=== PATIENT | female | born 1990 | race Caucasian/White ===

== ENCOUNTER 2017-10-10 11:02 | Emergency (ER) | payer OTHER ==
[2017-10-10 11:08] VITALS: BMI 21.7
--- NOTE | 2017-10-10 11:44 | PDOC ---
History of Present Illness - General History Source: Patient Exam Limitations: No Limitations - History of Present Illness Initial Comments: 10/10/17 12:15 The patient is a 27-year-old female with no significant past medical history, and presents to the emergency department with abdominal pain, sore throat, and cough for 4 days. She reports she developed a scratchy throat 4 days ago, and developed associated weakness, chest congestion, and body aches the next day. She also reports of a productive cough with dark green mucus. She complains of constant diffuse abdominal pain, accompanied by nausea and non-bloody diarrhea. She states she took Theraflu with no significant relief. The patient denies chest pain, shortness of breath, headache and dizziness. The patient denies fever, chills, vomit, and constipation. The patient denies dysuria, frequency, urgency and hematuria. LMP: 10/01/17 Allergies: NKDA Past Surgical History: None reported Social History: No toxic habits reported <Colette Pickering - Last Filed: 10/10/17 12:15> <Bud Calix - Last Filed: 10/10/17 19:15> - General Chief Complaint: Pain, Acute Stated Complaint: ABD PAIN, SOB Time Seen by Provider: 10/10/17 11:41 Past History <Colette Pickering - Last Filed: 10/10/17 12:15> - Past Medical History Asthma: Yes COPD: No - Suicide/Smoking/Psychosocial Hx Smoking History: Never smoked Hx Alcohol Use: No Drug/Substance Use Hx: No Substance Use Type: None <Bud Calix - Last Filed: 10/10/17 19:15> - Past Medical History Allergies/Adverse Reactions: Allergies Allergy/AdvReac Type Severity Reaction Status Date / Time No Known Allergies Allergy Verified 10/10/17 11:08 Home Medications: Ambulatory Orders Albuterol Sulfate Inhaler - [Ventolin HFA Inhaler -] 2 inh PO Q6H PRN #1 inh 05/01 Dicyclomine HCl [Bentyl -] 10 mg PO Q6H #28 capsule 10/10/17 Ibuprofen [Motrin -] 600 mg PO TID #90 tablet 10/10/17 Ondansetron [Zofran Odt -] 4 mg SL TID #21 od.tablet 10/10/17 Review of Systems - Review of Systems Able to Perform ROS?: Yes Comments:: 10/10/17 12:15 GENERAL/CONSTITUTIONAL: No fever or chills. No weakness. HEAD, EYES, EARS, NOSE AND THROAT: No change in vision. No ear pain or discharge. (+) sore throat. CARDIOVASCULAR: No chest pain or shortness of breath. RESPIRATORY: (+) Cough. No wheezing, or hemoptysis. GASTROINTESTINAL: (+) Abdominal pain. (+) Nausea. (+) Diarrhea. No vomiting or constipation. GENITOURINARY: No dysuria, frequency, or change in urination. MUSCULOSKELETAL: No joint or muscle swelling or pain. No neck or back pain. SKIN: No rash NEUROLOGIC: No headache, vertigo, loss of consciousness, or change in strength/ sensation. ENDOCRINE: No increased thirst. No abnormal weight change. HEMATOLOGIC/LYMPHATIC: No anemia, easy bleeding, or history of blood clots. ALLERGIC/IMMUNOLOGIC: No hives or skin allergy. <Pickering,Colette - Last Filed: 10/10/17 12:15> *Physical Exam - Vital Signs Last Vital Signs Temp Pulse Resp BP Pulse Ox 97.9 F 61 20 130/51 100 10/10/17 11:03 10/10/17 11:03 10/10/17 11:03 10/10/17 11:03 10/10/17 11:03 - Physical Exam Comments: 10/10/17 12:15 GENERAL: Awake, alert, and fully oriented, in no acute distress HEAD: No signs of trauma EYES: PERRLA, EOMI, sclera anicteric, conjunctiva clear ENT: Auricles normal inspection, hearing grossly normal, nares patent, oropharynx clear without exudates. Moist mucosa NECK: Normal ROM, supple, no lymphadenopathy, JVD, or masses LUNGS: Breath sounds equal, clear to auscultation bilaterally. No wheezes, and no crackles HEART: Regular rate and rhythm, normal S1 and S2, no murmurs, rubs or gallops ABDOMEN: Soft, nontender, normoactive bowel sounds. No guarding, no rebound. No masses EXTREMITIES: Normal range of motion, no edema. No clubbing or cyanosis. No cords, erythema, or tenderness NEUROLOGICAL: Cranial nerves II through XII grossly intact. Normal speech, normal gait SKIN: Warm, Dry, normal turgor, no rashes or lesions noted. <Colette Pickering - Last Filed: 10/10/17 12:15> - Vital Signs Last Vital Signs Temp Pulse Resp BP Pulse Ox 97.9 F 61 20 130/51 100 10/10/17 11:03 10/10/17 11:03 10/10/17 11:03 10/10/17 11:03 10/10/17 11:03 <Bud Calix - Last Filed: 10/10/17 19:15> ED Treatment Course - LABORATORY CBC & Chemistry Diagram: 10/10/17 12:40 10/10/17 12:40 <Bud Calix - Last Filed: 10/10/17 19:15> *DC/Admit/Observation/Transfer - Attestations Scribe Attestion: 10/10/17 12:16 Documentation prepared by Colette Pickering, acting as medical equipment repairer for Bud Calix MD/DO. <Colette Pickering - Last Filed: 10/10/17 12:15> - Discharge Dispostion Admit: No - Attestations Physician Attestion: 10/10/17 11:44 I, Dr. Bud Calix, attest that this document has been prepared under my direction and personally reviewed by me in its entirety. I further attest, that it accurately reflects all work, treatment, procedures and medical decision -making performed by me. <Bud Calix - Last Filed: 10/10/17 19:15> Diagnosis at time of Disposition: Viral syndrome Abdominal pain Qualifiers: Abdominal location: generalized Qualified Code(s): R10.84 - Generalized abdominal pain Diarrhea Qualifiers: Diarrhea type: unspecified type Qualified Code(s): R19.7 - Diarrhea, unspecified - Discharge Dispostion Disposition: HOME Condition at time of disposition: Improved - Prescriptions Prescriptions: Dicyclomine HCl [Bentyl -] 10 mg PO Q6H #28 capsule Ibuprofen [Motrin -] 600 mg PO TID #90 tablet Ondansetron [Zofran Odt -] 4 mg SL TID #21 od.tablet - Patient Instructions Printed Discharge Instructions: DI for Viral Syndrome, DI for Viral Gastroenteritis -- Adult Additional Instructions: Elissa- Sorry this is happening to you. Your ultrasound is fine. THis is just a virus and you should be better in two or three days. Return to us if worse or any problems. Follow up with your doctor. Back to work on the . Best- Dr. Bud Calix Rx for pain, nausea and cramping (Elizabeth, Susan and Domitila) went directly to your pharmacy. Make certain you get enough fluids. - Post Discharge Activity Forms/Work/School Notes: Back to Work
[2017-10-10] MEDS ORDERED: ACETAMINOPHEN 1000 MG/100 ML VIAL (NON FORMULARY) IVPB ONE (11:51)
[2017-10-10] MEDS ORDERED: SODIUM CHLORIDE 0.9% 1000 ML INFUS.BAG IV ONE (11:51)
[2017-10-10] MEDS ORDERED: ONDANSETRON 4 MG/2 ML VIAL IVPUSH ONE (11:51)
[2017-10-10] MEDS ORDERED: KETOROLAC TROMETHAMINE 30 MG/1 ML VIAL IM ONE (11:51)
[2017-10-10] MEDS ORDERED: ACETAMINOPHEN INJECTION 100 ML IVPB ONE (12:31)
[2017-10-10] MEDS ORDERED: ONDANSETRON 4 MG/2 ML VIAL ONE ×2 (12:31→17:14)
[2017-10-10] MEDS ORDERED: KETOROLAC TROMETHAMINE 30 MG/1 ML VIAL ONE (12:31)
[2017-10-10 12:55] LABS: BASO % 0.2 % (0-2.0); EOS # 0.1 # (0-4.5); EOS % 1.2 % (0-4.5); LYMPH # 0.8 (8-40); MCH 30.1 pg (25.7-33.7); MCHC 32.4 g/dl (32.0-36.0); MEAN CELL VOLUME 92.7 fl (80-96); MEAN PLT VOLUME 8.9 fl (7.5-11.1); MONO # 0.7 # (3.8-10.2); NEUT # 10.9 # (42.8-82.8); PLATELET COUNT 231 K/MM3 (134-434); RDW 13.7 % (11.6-15.6); WHITE BLOOD COUNT 12.5 K/mm3 (4.0-10.0)
[2017-10-10 12:57] LABS: URINE APPEARANCE CLEAR; URINE BILIRUBIN NEGATIVE (NEGATIVE); URINE BLOOD NEGATIVE (NEGATIVE); URINE COLOR YELLOW; URINE GLUCOSE (UA) NEGATIVE (NEGATIVE); URINE KETONE NEGATIVE (NEGATIVE); URINE LEUK ESTERASE NEGATIVE (NEGATIVE); URINE NITRITE NEGATIVE (NEGATIVE); URINE PROTEIN NEGATIVE (NEGATIVE); URINE UROBILINOGEN NEGATIVE mg/dL (0.2-1.0)
[2017-10-10 13:08] LABS: INR 1.14 (0.82-1.09); PROTHROMBIN TIME (PATIENT) 12.9 SEC (9.98-11.88)
[2017-10-10 13:13] LABS: ALK PHOS 93 U/L (45-117); ANION GAP 6 (8-16); BILIRUBIN,TOTAL 0.3 mg/dL (0.2-1.0); CALCIUM 8.8 mg/dL (8.5-10.1); CO2 27 mmol/L (21-32); CREATININE 0.8 mg/dL (0.55-1.02); GLUCOSE,RANDOM 93 mg/dL (74-106); SGOT/AST 11 U/L (15-37); SGPT/ALT 17 U/L (12-78); TOT PROT 7.4 g/dl (6.4-8.2)
[2017-10-10] MEDS ORDERED: KETOROLAC TROMETHAMINE 30 MG/1 ML VIAL IVPUSH ONE (13:43)
[2017-10-10] MEDS ORDERED: ONDANSETRON 4 MG/2 ML VIAL IVPB ONE (17:13)
[2017-10-10 18:12] VITALS: BP 106/61; PULSE 62; TEMP 97.8
[2017-10-10 18:52] LABS: URINE LEUK ESTERASE Negative (NEGATIVE)
== END 2017-10-10 19:33 | disposition home or self-care (01) ==
LOC: JER 11:02
PROC: 3E033NZ Introduction of Analgesics, Hypnotics, Sedatives into Peripheral Vein, Percutaneous Approach (ICD-10-PCS; principal; 2017-10-10)
PROC: 3E0333Z Introduction of Anti-inflammatory into Peripheral Vein, Percutaneous Approach (ICD-10-PCS; 2017-10-10)
PROC: 3E033GC Introduction of Other Therapeutic Substance into Peripheral Vein, Percutaneous Approach (ICD-10-PCS; 2017-10-10)
PROC: 3E0337Z Introduction of Electrolytic and Water Balance Substance into Peripheral Vein, Percutaneous Approach (ICD-10-PCS; 2017-10-10)
DX: B34.9 Viral infection, unspecified (principal); R10.84 Generalized abdominal pain
CPT/HCPCS: 36415; 71020-TC; 74176-TC; 76830-TC; 80053; 81003; 83605; 83690; 84703; 85025; 85610; 87086; 87804; 99282-25

== ENCOUNTER 2021-02-18 04:17 | Day surgery (SDC) | payer OTHER ==
[2021-02-18 07:01] VITALS: BMI 21.6
[2021-02-18] MEDS ORDERED: BUPIVACAINE HCL/PF 0.5% (5MG/ML) 10 ML VIAL ONE (07:23)
[2021-02-18] MEDS ORDERED: LIDOCAINE 1%/EPI 1:100000 (50 ML MULTI DOSE VIAL) ONE (07:23)
[2021-02-18] MEDS ORDERED: MIDAZOLAM HCL 2 MG/2 ML SINGLE DOSE VIAL ONE ×2 (07:36→09:07)
[2021-02-18] MEDS ORDERED: ROCURONIUM BROMIDE 100 MG/10 ML VIAL ONE (07:36)
[2021-02-18] MEDS ORDERED: PROPOFOL 20 ML ONE ×2 (07:36→09:03)
[2021-02-18] MEDS ORDERED: LIDOCAINE HCL/PF 2% SDV 5ML VIAL ONE (07:44)
[2021-02-18] MEDS ORDERED: ONDANSETRON 4 MG/2 ML VIAL ONE (07:55)
[2021-02-18] MEDS ORDERED: DEXAMETHASONE SOD PHOSPHATE 4 MG/1 ML VIAL ONE (07:55)
[2021-02-18] MEDS ORDERED: KETOROLAC TROMETHAMINE 30 MG/1 ML VIAL ONE (08:11)
[2021-02-18] MEDS ORDERED: BUPIVACAINE HCL/PF 0.5% (5MG/ML) 10 ML VIAL IJ ONE ×2 (08:49)
[2021-02-18] MEDS ORDERED: NEOSTIGMINE METHYLSULFATE 0.5 MG/ML - 10 ML MDV ONE (08:52)
[2021-02-18] MEDS ORDERED: GLYCOPYRROLATE 0.2 MG/1 ML VIAL ONE (08:52)
[2021-02-18] MEDS ORDERED: ONDANSETRON 4 MG/2 ML VIAL IVPUSH PRN (09:22)
[2021-02-18] MEDS ORDERED: PROMETHAZINE HCL 25 MG/1 ML VIAL IVPB PRN (09:22)
[2021-02-18] MEDS ORDERED: oxyCODONE HCL 5 MG TABLET PO PRN (09:22)
[2021-02-18] MEDS ORDERED: LACTATED RINGERS SOLUTION 1,000 ML IV SCH (09:30)
[2021-02-18] MEDS ORDERED: oxyCODONE HCL 5 MG TABLET ONE (11:53)
[2021-02-18] MEDS ORDERED: oxyCODONE HCL 5 MG TABLET PO ONE (11:55)
[2021-02-18] MEDS ORDERED: ACETAMINOPHEN 325 MG TABLET (FP) PO ONE (13:42)
[2021-02-18 13:49] VITALS: TEMP 98.2
[2021-02-18 15:35] VITALS: BP 115/70; PULSE 66
== END 2021-02-18 15:05 | disposition home or self-care (01) ==
LOC: JASU-SURG 04:17
PROVIDERS: ATTEND Otolaryngology
PROC: 07B20ZX Excision of Left Neck Lymphatic, Open Approach, Diagnostic (ICD-10-PCS; principal; 2021-02-18 07:30)
DX: R59.0 Localized enlarged lymph nodes (principal)
CPT/HCPCS: 81025; 88305-TC; 94760

== ENCOUNTER → 2021-12-22 | Day surgery (SDC) | payer OTHER | END | disposition home or self-care (01) | LOC: JRADUS 09:31 → JRADUS-SUR 09:31 → EDSTATUS 10:00 | PROVIDERS: ATTEND Physician Assistant | PROC: BU4CYZZ Ultrasonography of Uterus and Ovaries using Other Contrast (ICD-10-PCS; principal; 2021-12-22) | DX: N84.0 Polyp of corpus uteri (principal); Z53.8 Procedure and treatment not carried out for other reasons | CPT/HCPCS: 76831; 84703 ==

== ENCOUNTER 2022-11-28 21:21 | Emergency (ER) | payer OTHER ==
[2022-11-28 21:25] VITALS: BP 127/81; PULSE 59; RESP 18; TEMP 97.9; BMI 20.5
[2022-11-28] MEDS ORDERED: LIDOCAINE 5% TOPICAL PATCH TP ONE (22:18)
[2022-11-28] MEDS ORDERED: ACETAMINOPHEN 325 MG TABLET (FP) PO ONE (22:19)
[2022-11-28] MEDS ORDERED: KETOROLAC TROMETHAMINE 30 MG/1 ML VIAL IM ONE (22:19)
[2022-11-28] MEDS ORDERED: KETOROLAC TROMETHAMINE 30 MG/1 ML VIAL ONE (22:22)
[2022-11-28] MEDS ORDERED: ACETAMINOPHEN 325 MG TABLET (FP) ONE (22:22)
[2022-11-28] MEDS ORDERED: LIDOCAINE 5% TOPICAL PATCH ONE (22:22)
[2022-11-28] MEDS ORDERED: DEXAMETHASONE 4 MG TABLET (FP) PO ONE (22:47)
[2022-11-28] MEDS ORDERED: diazePAM 5 MG TABLET PO ONE (22:48)
[2022-11-28] MEDS ORDERED: diazePAM 5 MG TABLET ONE (22:53)
[2022-11-28] MEDS ORDERED: DEXAMETHASONE 4 MG TABLET (FP) ONE (22:54)
[2022-11-29] MEDS ORDERED: LIDOCAINE PATCH REMOVAL MC SCH (10:00)
== END 2022-11-28 23:02 | disposition home or self-care (01) ==
LOC: JER 21:21
PROC: 3E0233Z Introduction of Anti-inflammatory into Muscle, Percutaneous Approach (ICD-10-PCS; principal; 2022-11-28)
DX: M54.50 Low back pain, unspecified (principal); M62.830 Muscle spasm of back
CPT/HCPCS: 99284-25

== ENCOUNTER 2022-12-26 19:36 | Emergency (ER) | payer OTHER ==
[2022-12-26 19:42] VITALS: BP 125/74; PULSE 76; RESP 18; TEMP 97.9; BMI 21.2
[2022-12-26] MEDS ORDERED: ACETAMINOPHEN 500 MG TABLET (FP) PO ONE (21:49)
[2022-12-26] MEDS ORDERED: IBUPROFEN 600 MG TABLET (FP) PO ONE ×2 (21:49→21:51)
[2022-12-26] MEDS ORDERED: ACETAMINOPHEN 500 MG TABLET (FP) ONE (21:51)
== END 2022-12-26 22:30 | disposition home or self-care (01) ==
LOC: JERFT 19:36
DX: H57.12 Ocular pain, left eye (principal)
CPT/HCPCS: 99283-25

== ENCOUNTER 2023-01-11 15:37 | Emergency (ER) | payer OTHER ==
[2023-01-11 15:52] VITALS: BP 102/57; PULSE 67; RESP 18; TEMP 98.3; BMI 20.9
[2023-01-11] MEDS ORDERED: LIDOCAINE 5% TOPICAL PATCH TP ONE (16:53)
[2023-01-11] MEDS ORDERED: KETOROLAC TROMETHAMINE 30 MG/1 ML VIAL IM ONE (16:53)
[2023-01-11] MEDS ORDERED: METHOCARBAMOL 500 MG TABLET PO ONE (16:53)
[2023-01-11] MEDS ORDERED: LIDOCAINE 5% TOPICAL PATCH ONE (17:04)
[2023-01-11] MEDS ORDERED: METHOCARBAMOL 500 MG TABLET ONE (17:05)
[2023-01-11] MEDS ORDERED: KETOROLAC TROMETHAMINE 30 MG/1 ML VIAL ONE (17:05)
[2023-01-11] MEDS ORDERED: LIDOCAINE PATCH REMOVAL MC SCH (22:00)
== END 2023-01-11 17:29 | disposition home or self-care (01) ==
LOC: JERFT 15:37
PROC: 3E023GC Introduction of Other Therapeutic Substance into Muscle, Percutaneous Approach (ICD-10-PCS; principal; 2023-01-11)
DX: S39.012A Strain of muscle, fascia and tendon of lower back, initial encounter (principal); X50.0XXA Overexertion from strenuous movement or load, initial encounter
CPT/HCPCS: 99284-25

== ENCOUNTER 2023-04-12 16:49 | Emergency (ER) | payer OTHER ==
[2023-04-12 16:55] VITALS: BP 105/58; PULSE 84; RESP 18; TEMP 98; BMI 21.1
[2023-04-12] MEDS ORDERED: LIDOCAINE 5% TOPICAL PATCH TP ONE (17:14)
[2023-04-12] MEDS ORDERED: KETOROLAC TROMETHAMINE 30 MG/1 ML VIAL IM ONE (17:14)
[2023-04-12] MEDS ORDERED: LIDOCAINE 5% TOPICAL PATCH ONE (17:16)
[2023-04-12] MEDS ORDERED: KETOROLAC TROMETHAMINE 30 MG/1 ML VIAL ONE (17:16)
== END 2023-04-12 17:27 | disposition home or self-care (01) ==
LOC: JERFT 16:49
PROC: 3E0233Z Introduction of Anti-inflammatory into Muscle, Percutaneous Approach (ICD-10-PCS; principal; 2023-04-12)
DX: M54.50 Low back pain, unspecified (principal); M79.652 Pain in left thigh
CPT/HCPCS: 99284-25

== ENCOUNTER 2023-10-14 13:43 | Emergency (ER) | payer OTHER ==
[2023-10-14 14:19] VITALS: BP 97/67; PULSE 101; RESP 20; TEMP 98.4; BMI 21.6
[2023-10-14] MEDS ORDERED: KETOROLAC TROMETHAMINE 30 MG/1 ML VIAL IM ONE (16:39)
[2023-10-14] MEDS ORDERED: ACETAMINOPHEN 500 MG TABLET (FP) PO ONE (16:39)
[2023-10-14] MEDS ORDERED: METHOCARBAMOL 500 MG TABLET PO ONE (16:39)
[2023-10-14] MEDS ORDERED: ACETAMINOPHEN 500 MG TABLET (FP) ONE (16:41)
[2023-10-14] MEDS ORDERED: METHOCARBAMOL 500 MG TABLET ONE (16:41)
[2023-10-14] MEDS ORDERED: KETOROLAC TROMETHAMINE 30 MG/1 ML VIAL ONE (16:41)
== END 2023-10-14 17:04 | disposition home or self-care (01) ==
LOC: JERFT 13:43
PROC: 3E0233Z Introduction of Anti-inflammatory into Muscle, Percutaneous Approach (ICD-10-PCS; principal; 2023-10-14)
DX: M54.50 Low back pain, unspecified (principal); R05.9 Cough, unspecified; J06.9 Acute upper respiratory infection, unspecified; M62.830 Muscle spasm of back; X50.0XXA Overexertion from strenuous movement or load, initial encounter
CPT/HCPCS: 99284-25

== ENCOUNTER 2023-12-22 04:11 | Day surgery (SDC) | payer OTHER ==
[2023-12-21 12:30] VITALS: BMI 21.6
[2023-12-22 10:35] VITALS: TEMP 98.6
[2023-12-22 10:49] VITALS: RESP 18
[2023-12-22 11:17] VITALS: BP 104/66; PULSE 73
== END 2023-12-22 11:15 | disposition home or self-care (01) ==
LOC: JASU-ENDO 04:11
PROVIDERS: ATTEND Internal Medicine Gastroenterology
PROC: 0DB78ZX Excision of Stomach, Pylorus, Via Natural or Artificial Opening Endoscopic, Diagnostic (ICD-10-PCS; 2023-12-22)
PROC: 0DB68ZX Excision of Stomach, Via Natural or Artificial Opening Endoscopic, Diagnostic (ICD-10-PCS; 2023-12-22)
PROC: 0DB98ZX Excision of Duodenum, Via Natural or Artificial Opening Endoscopic, Diagnostic (ICD-10-PCS; principal; 2023-12-22 09:45)
DX: K29.50 Unspecified chronic gastritis without bleeding (principal); D64.9 Anemia, unspecified
CPT/HCPCS: 81025; 88305-TC; 88342-TC

== ENCOUNTER 2025-01-18 12:15 | Observation (INO) | payer OTHER ==
[2025-01-18 12:22] VITALS: RESP 18
[2025-01-18] MEDS ORDERED: LIDOCAINE 4% PATCH TP ONE (12:54)
[2025-01-18] MEDS ORDERED: diazePAM 2 MG TABLET ONE (12:54)
[2025-01-18] MEDS ORDERED: KETOROLAC TROMETHAMINE 30 MG/1 ML VIAL ONE (12:54)
[2025-01-18] MEDS: LIDOCAINE 5% TOPICAL PATCH TP ONE (12:59)
[2025-01-18] MEDS: KETOROLAC TROMETHAMINE 30 MG/1 ML VIAL IM ONE (12:59)
[2025-01-18] MEDS: diazePAM 2 MG TABLET PO ONE (13:00)
[2025-01-18] MEDS ORDERED: ONDANSETRON 4 MG/2 ML VIAL ONE (16:03)
[2025-01-18] MEDS ORDERED: methylPREDNISolone NA SUCC 125 MG/2 ML VIAL ONE (16:03)
[2025-01-18] MEDS: methylPREDNISolone NA SUCC 125 MG/2 ML VIAL IVPB ONE (16:09)
[2025-01-18] MEDS: SODIUM CHLORIDE 0.9% 500 ML INFUS.BAG IV ONE (16:09)
[2025-01-18] MEDS: ONDANSETRON 4 MG/2 ML VIAL IVPUSH ONE (16:09)
[2025-01-18 16:10] LABS: ABSOLUTE IMMATURE GRANULOCYTES 0.11 x10^3/uL (0.0-0.031); BASOPHILS # 0.03 x10^3/uL (0.01-0.08); EOSINOPHIL % 1.6 % (0.7-5.8); EOSINOPHILS # 0.15 x10^3/uL (0.04-0.36); HEMATOCRIT 40.9 % (34.1-44.9); HEMOGLOBIN 13.5 g/dL (11.2-15.7); MEAN CELL VOLUME 92.1 fl (79.4-94.8); MEAN PLT VOLUME 10.1 fl (9.4-12.3); MONOCYTE # 0.55 x10^3/uL (0.24-0.86); PH,URINE 5.5 (5.0-8.0); PLATELET COUNT 301 x10^3/uL (182-369); RDW 12.2 % (12.1-16.8); URINE APPEARANCE CLEAR; URINE BILIRUBIN NEGATIVE (NEGATIVE); URINE COLOR DK YELLOW; URINE GLUCOSE (UA) NEGATIVE (NEGATIVE); URINE KETONE TRACE (NEGATIVE); URINE LEUK ESTERASE NEGATIVE (NEGATIVE); URINE NITRITE NEGATIVE (NEGATIVE); URINE PROTEIN TRACE (NEGATIVE)
[2025-01-18 16:13] LABS: HCG,QUALITATIVE URINE Negative
[2025-01-18 16:41] LABS: POTASSIUM 3.8 mmol/L (3.5-5.1)
[2025-01-18 16:43] LABS: CALCIUM 8.7 mg/dL (8.5-10.1)
[2025-01-18 16:44] LABS: BLOOD UREA NITROGEN 9.2 mg/dL (7-18)
[2025-01-18 16:47] LABS: CREATININE 0.8 mg/dL (0.55-1.3)
[2025-01-18 16:48] LABS: BILIRUBIN,TOTAL 0.3 mg/dL (0.2-1); TOT PROT 7.6 g/dl (6.4-8.2)
[2025-01-18] MEDS ORDERED: FAMOTIDINE 20 MG/50 ML IVPB 20 MG/50 ML MG IVPB ONE (17:53)
[2025-01-18] MEDS: FAMOTIDINE 20 MG/50 ML IVPB 20 MG/50 ML MG IVPB ONE (17:59)
[2025-01-18] MEDS ORDERED: ACETAMINOPHEN 325 MG TABLET (FP) PO PRN (18:19)
[2025-01-18] MEDS ORDERED: KETOROLAC TROMETHAMINE 15 MG/ML VIAL IVPUSH PRN (19:19)
[2025-01-18] MEDS ORDERED: CycloBENZAprine HCL 10 MG TABLET (FP) PO PRN (19:32)
[2025-01-18 20:19] VITALS: BMI 24.4
[2025-01-18] MEDS ORDERED: HYDROmorphone HCL CARPU-JECT 2 MG/1 ML DISP.SYRIN IVPB PRN (21:00)
[2025-01-18] MEDS: FAMOTIDINE 20 MG/50 ML IVPB 20 MG/50 ML MG IVPB SCH (21:13)
[2025-01-18] MEDS: HYDROmorphone HCL CARPU-JECT 2 MG/1 ML DISP.SYRIN IVPB PRN (21:13)
[2025-01-18] MEDS: LIDOCAINE PATCH REMOVAL MC ONE (21:25)
[2025-01-19] MEDS ORDERED: CycloBENZAprine HCL 10 MG TABLET (FP) PO PRN (07:41)
[2025-01-19] MEDS ORDERED: oxyCODONE HCL 5 MG TABLET PO PRN (07:47)
[2025-01-19] MEDS: ACETAMINOPHEN 500 MG TABLET (FP) PO SCH (08:34)
[2025-01-19 08:57] LABS: HEMATOCRIT 36.7 % (34.1-44.9); HEMOGLOBIN 12.2 g/dL (11.2-15.7); MCHC 33.2 g/dl (32.2-35.5); MEAN CELL VOLUME 91.1 fl (79.4-94.8); MEAN PLT VOLUME 10.6 fl (9.4-12.3); PLATELET COUNT 276 x10^3/uL (182-369); RDW 12.1 % (12.1-16.8)
[2025-01-19 09:12] LABS: POTASSIUM 4.1 mmol/L (3.5-5.1)
[2025-01-19 09:14] LABS: CALCIUM 8.7 mg/dL (8.5-10.1)
[2025-01-19 09:16] LABS: BLOOD UREA NITROGEN 8.5 mg/dL (7-18)
[2025-01-19 09:19] LABS: CREATININE 0.7 mg/dL (0.55-1.3); PHOSPHOROUS 3.3 mg/dL (2.5-4.9)
[2025-01-19] MEDS: PANTOPRAZOLE SODIUM 40 MG VIAL IVPUSH SCH (10:00)
[2025-01-19] MEDS: NAPROXEN 500 MG TABLET PO SCH (10:00)
[2025-01-19] MEDS: ENOXAPARIN NA (PORCINE) 40 MG/0.4 ML DISP.SYRIN SQ SCH (10:00)
[2025-01-19] MEDS: methylPREDNISolone 4 MG TABLET PO ONE (10:01)
[2025-01-19] MEDS: oxyCODONE HCL 5 MG TABLET PO PRN (13:56)
[2025-01-19] MEDS: ARTIFICIAL TEARS OPHTHALMIC DROPS OU PRN (14:09)
[2025-01-19] MEDS: diphenhydrAMINE HCL 25 MG CAPSULE (FP) PO ONE (21:59)
[2025-01-20] MEDS: CycloBENZAprine HCL 5 MG TABLET PO SCH (09:02)
[2025-01-20] MEDS: TETRAHYDROZOLINE HCL EYE DROPS OD SCH (09:03)
[2025-01-20 09:28] LABS: ABSOLUTE IMMATURE GRANULOCYTES 0.02 x10^3/uL (0.0-0.031); BASOPHILS # 0.04 x10^3/uL (0.01-0.08); EOSINOPHIL % 1.1 % (0.7-5.8); EOSINOPHILS # 0.09 x10^3/uL (0.04-0.36); HEMATOCRIT 37.6 % (34.1-44.9); HEMOGLOBIN 12.3 g/dL (11.2-15.7); MCHC 32.7 g/dl (32.2-35.5); MEAN CELL VOLUME 92.2 fl (79.4-94.8); MEAN PLT VOLUME 10.2 fl (9.4-12.3); MONOCYTE # 0.55 x10^3/uL (0.24-0.86); MONOCYTE % 6.5 % (4.7-12.5); PLATELET COUNT 246 x10^3/uL (182-369); RDW 12.4 % (12.1-16.8)
[2025-01-20 09:59] LABS: BLOOD UREA NITROGEN 8.9 mg/dL (7-18); CALCIUM 8.7 mg/dL (8.5-10.1)
[2025-01-20 10:00] LABS: CREATININE 0.8 mg/dL (0.55-1.3)
[2025-01-20] MEDS: POLYETHYLENE GLYCOL (HEALTHYLAX) 3350 17 GM PACKET PO SCH (11:41)
[2025-01-20] MEDS: DOCUSATE SODIUM 100 MG CAPSULE (FP) PO SCH (11:41)
[2025-01-20] MEDS: MELATONIN 5 MG TABLETS PO PRN (22:02)
[2025-01-21] MEDS: methylPREDNISolone 4 MG TABLET PO ONE (09:56)
[2025-01-21 13:38] VITALS: BP 106/58; PULSE 72; TEMP 98.1
== END 2025-01-21 13:56 | disposition home or self-care (01) ==
LOC: JERFT 12:15 → JER 12:15 → JERBED 18:11 → J5S 20:05
PROVIDERS: ADMIT Student in an Organized Health Care Education/Training Program; ATTEND Internal Medicine
PROC: 3E033GC Introduction of Other Therapeutic Substance into Peripheral Vein, Percutaneous Approach (ICD-10-PCS; principal; 2025-01-18)
PROC: 3E023GC Introduction of Other Therapeutic Substance into Muscle, Percutaneous Approach (ICD-10-PCS; 2025-01-18)
PROC: 3E033NZ Introduction of Analgesics, Hypnotics, Sedatives into Peripheral Vein, Percutaneous Approach (ICD-10-PCS; 2025-01-18)
PROC: 3E0233Z Introduction of Anti-inflammatory into Muscle, Percutaneous Approach (ICD-10-PCS; 2025-01-18)
PROC: 3E0337Z Introduction of Electrolytic and Water Balance Substance into Peripheral Vein, Percutaneous Approach (ICD-10-PCS; 2025-01-18)
DX: M51.86 Other intervertebral disc disorders, lumbar region (principal); R25.3 Fasciculation; J45.909 Unspecified asthma, uncomplicated; M54.9 Dorsalgia, unspecified
CPT/HCPCS: 36415; 72100-TC-FY; 72148-TC; 80048; 80053; 81003; 83735; 84100; 84703; 85025; 85027; 87086; 96365; 96366; 96372; 96375; 97116-GP; 97161-GP; 99285-25; G0378

== ENCOUNTER 2025-04-25 16:39 | Emergency (ER) | payer OTHER ==
[2025-04-25 16:48] VITALS: BP 113/60; PULSE 68; RESP 18; TEMP 98.8; BMI 23.0
[2025-04-25] MEDS ORDERED: ONDANSETRON 4 MG TABLET PO ONE (17:41)
[2025-04-25] MEDS ORDERED: ACETAMINOPHEN 500 MG TABLET (FP) ONE (17:41)
[2025-04-25] MEDS: ACETAMINOPHEN 500 MG TABLET (FP) PO ONE (17:43)
[2025-04-25] MEDS: ONDANSETRON *ODT* 4 MG TABLET SL ONE (17:43)
== END 2025-04-25 18:46 | disposition home or self-care (01) ==
LOC: JER 16:39
DX: S06.0X9A Concussion with loss of consciousness of unspecified duration, initial encounter (principal); W25.XXXA Contact with sharp glass, initial encounter
CPT/HCPCS: 70450-TC; 99284-25; Q0162